=== PATIENT | female | born 1975 | race American Indian/Alaskan Native ===

== ENCOUNTER 2019-01-27 12:36 | Emergency (ER) | payer OTHER ==
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
[2019-01-27 13:14] VITALS: BP 127/74
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
[2019-01-27] MEDS ORDERED: IBUPROFEN PO ONE (14:25)
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
== END 2019-01-27 18:34 | disposition home or self-care (01) ==
LOC: ED 12:36
DX: S29.012A Strain of muscle and tendon of back wall of thorax, initial encounter (principal); S20.219A Contusion of unspecified front wall of thorax, initial encounter; Z90.710 Acquired absence of both cervix and uterus; V89.2XXA Person injured in unspecified motor-vehicle accident, traffic, initial encounter; Y93.89 Activity, other specified; Y92.410 Unspecified street and highway as the place of occurrence of the external cause; Y99.8 Other external cause status
CPT/HCPCS: 72070